=== PATIENT | female | born 1960 | race Native Hawaiian/Other Pacific Islander ===

== ENCOUNTER 2016-04-29 19:06 | Emergency (ER) | payer OTHER ==
[~2016-04-29] VITALS: Ht 162.6 cm; Wt 117.9 kg
[~2016-04-29 19:06] MED LIST: BENICAR40 MG OR; CYCL10TA35; FURO20TA67; GABA300C2; HYDR25TA60 PO; HYDROCO/APAP1 TA8 PO; NEXIUM40 M1; ONDA4TAB3 PO; PROM25TA52 PO; RLFLU500T
[2016-04-29 19:46] LABS: PLATELET COUNT 258 K/uL (152-353)
[2016-04-29 19:56] LABS: POTASSIUM 3.4 mmol/L (3.6-5.2); SODIUM 139 mmol/L (136-145)
[2016-04-29] MEDS ORDERED: CLON0.1T16 PO (21:13)
[2016-04-29] MEDS ORDERED: MECL25TA84 PO (21:13)
[2016-04-29 21:19] VITALS: BP 132/51; TEMP 99.8
== END 2016-04-29 21:20 | disposition home or self-care (01) ==
LOC: ED 19:06
DX: I10 Essential (primary) hypertension (principal); R42 Dizziness and giddiness
CPT/HCPCS: 36415; 80053; 81000; 82150; 83690; 85027; 87081; 87804; 87880; 99284

== ENCOUNTER 2018-01-12 11:31 | Day surgery (SDC) | payer OTHER ==
[~2018-01-12] VITALS: Ht 30.5 cm; Wt 0.5 kg
[~2018-01-12 11:31] MED LIST changes: +CLON0.1T16 PO; +MECL25TA84 PO
[2018-01-12 12:18] LABS: PLATELET COUNT 284 K/uL (152-353)
[2018-01-12 12:25] LABS: POTASSIUM 3.7 mmol/L (3.6-5.2)
== END 2018-01-12 17:36 | disposition home or self-care (01) ==
LOC: OR 11:31
PROVIDERS: Student in an Organized Health Care Education/Training Program
PROC: 0JJT0ZZ Inspection of Trunk Subcutaneous Tissue and Fascia, Open Approach (ICD-10-PCS; principal; 2018-01-12)
PROC: 0Y960ZZ Drainage of Left Inguinal Region, Open Approach (ICD-10-PCS; 2018-01-12)
DX: L02.214 Cutaneous abscess of groin (principal); A49.01 Methicillin susceptible Staphylococcus aureus infection, unspecified site; M79.89 Other specified soft tissue disorders
CPT/HCPCS: 80053; 85027; 87070; 87077; 87185; 87186; 87205; J1885; J2001; J2250; J2405; J2704; J3010; J3490

== ENCOUNTER 2021-10-26 07:59 | Emergency (ER) | payer OTHER ==
[~2021-10-26] VITALS: Ht 160 cm; Wt 2.4 kg
[2021-10-26 08:09] VITALS: BP 154/79; TEMP 99.3
[2021-10-26 08:56] LABS: PLATELET COUNT 255 K/uL (152-353)
[2021-10-26 09:07] LABS: POTASSIUM 3.4 mmol/L (3.6-5.2)
[2021-10-26 09:18] LABS: PARTIAL THROMBOPLASTIN TIME 24.4 SECONDS (24.5-33.6)
== END 2021-10-26 10:03 | disposition still patient (30) ==
LOC: ED 07:59
PROVIDERS: Hospitalist
DX: R55 Syncope and collapse (principal); M25.561 Pain in right knee; R06.02 Shortness of breath; Z20.822 Contact with and (suspected) exposure to COVID-19; F17.210 Nicotine dependence, cigarettes, uncomplicated; Z53.29 Procedure and treatment not carried out because of patient's decision for other reasons
CPT/HCPCS: 36415; 80053; 80320; 81002; 82550; 83880; 84484; 85027; 85610; 85730; 87635; 93005; 96374; 96375; 99284; J1885; J2405; U0003